=== PATIENT | female | born 1940 | race Caucasian/White ===

== ENCOUNTER → 2017-02-18 | Outpatient (CLI) | payer OTHER ==
[~2017-02-18] MED LIST: AMLO-114 PO; ASPCH81 PO; CRS/10 PO; FURO-85 PO; HYDR-4716 PO; LEVO75TA PO; METO100T7 PO; MULTTAB58 PO; PRLSR20 PO
[2017-02-18 13:10] LABS: THYROID STIMULATING HORMONE 2.99 uIu/ml (0.300-4.500)
[2017-02-18 13:22] LABS: ESTIMATED AVERAGE GLUCOSE 143 mg/dl; HA1C FLAG Normal (Normal)
== END | disposition home or self-care (01) ==
LOC: C.LABBFT 08:06
PROVIDERS: ATTEND Internal Medicine
DX: E11.9 Type 2 diabetes mellitus without complications (principal); E03.9 Hypothyroidism, unspecified

== ENCOUNTER → 2017-02-25 | Outpatient (CLI) | payer OTHER ==
--- NOTE | 2017-02-25 10:35 | DIAGNOSTIC IMAGING REPORT ---
BILATERAL CAROTID DOPPLER STUDY HISTORY: I65.29 Carotid artery stenosis, [id number] F.UP LAST STUDY 1 COMPARISON: Carotid Doppler 08/26/2016. TECHNIQUE: Real-time, grayscale, and color Doppler sonography of the carotid arteries was performed. Imaging reviewed in the transverse and longitudinal planes. All measurements were calculated based on NASCET criteria. FINDINGS: Antegrade flow is seen in the bilateral vertebral arteries. The brachial pressures are hemodynamically similar but elevated measuring up to 200/92. Moderate calcified plaque within the right carotid bifurcation. This is similar to the prior study. The peak systolic velocity within the right ICA is 182 cm/s proximally. The right systolic ratio is 1.8. This has slightly improved from the prior study. The right external carotid artery demonstrates a peak systolic velocity of 306 cm/s. The peak systolic velocity within the left ICA is 114 cm/s. The left systolic ratio is 0.9. IMPRESSION: 1. Approximately 50-69% stenosis seen within the proximal right internal carotid artery. This is slightly improved. 2. No hemodynamically significant stenosis within the left carotid arteries. 3. Hypertension measuring 200/92. Electronically signed by: Arcadio Arzola M.D. 02/25/2017 10:33 AM Dictated Date/Time: 02/25/2017 10:30 AM
== END | disposition home or self-care (01) ==
LOC: C.ULTR 09:30
PROVIDERS: ATTEND Surgery
DX: I65.21 Occlusion and stenosis of right carotid artery (principal)

== ENCOUNTER → 2017-03-20 | Outpatient (CLI) | payer OTHER ==
[2017-03-20 12:16] LABS: HEMATOCRIT 41.4 % (37-47); MEAN CELL VOLUME 90.4 fL (80-100); MEAN CORPUSCULAR HEMOGLOBIN 29.5 pg (25-34); MEAN CORPUSCULAR HGB CONC 32.6 g/dl (32-36); MEAN PLATELET VOLUME 9.8 fL (7.4-10.4); PLATELET COUNT 244 K/uL (130-400); RED BLOOD COUNT 4.58 M/uL (4.2-5.4)
[2017-03-20 12:39] LABS: BLOOD UREA NITROGEN 24 mg/dl (7-18); BUN/CREATININE RATIO 15.8 (10-20); CARBON DIOXIDE 27 mmol/L (21-32); CHLORIDE 105 mmol/L (98-107); GLUCOSE 134 mg/dl (70-99); PHOSPHORUS 3.1 mg/dl (2.5-4.9); POTASSIUM 3.9 mmol/L (3.5-5.1); SODIUM 139 mmol/L (136-145)
[2017-03-20 12:49] LABS: URINE PROTIEN/CREAT RATIO 0.1 (0-0.2); URINE TOTAL PROTEIN 30.1 mg/dl (0-11.9)
[2017-03-20 13:00] LABS: URINE APPEARANCE CLEAR (CLEAR); URINE BILIRUBIN NEG (NEG); URINE COLOR YELLOW; URINE EPITHELIAL CELL AUTO 20-30 /lpf (0-5); URINE NITRITE NEG (NEG); URINE PH 5.5 (4.5-7.5); URINE SPECIFIC GRAVITY 1.019 (1.000-1.030); UROBILINOGEN NEG (NEG)
[2017-03-20 13:09] LABS: MANUAL MICROSCOPIC REQUIRED? NO; REVIEW REQ? NO
== END | disposition home or self-care (01) ==
LOC: C.LABBFT 07:35
PROVIDERS: ATTEND Internal Medicine Nephrology
DX: E55.9 Vitamin D deficiency, unspecified (principal); N25.81 Secondary hyperparathyroidism of renal origin; I12.9 Hypertensive chronic kidney disease with stage 1 through stage 4 chronic kidney disease, or unspecified chronic kidney disease; N18.3 Chronic kidney disease, stage 3 (moderate)

== ENCOUNTER → 2017-09-04 | Outpatient (CLI) | payer OTHER ==
[2017-09-04 12:41] LABS: ALT/SGPT 20 U/L (12-78); AST/SGOT 14 U/L (15-37); BLOOD UREA NITROGEN 27 mg/dl (7-18); BUN/CREATININE RATIO 18.7 (10-20); CALCIUM 9.1 mg/dl (8.5-10.1); CARBON DIOXIDE 23 mmol/L (21-32); CHLORIDE 106 mmol/L (98-107); CHOLESTEROL 197 mg/dl (0-200); CREATININE 1.44 mg/dl (0.60-1.20); GLUCOSE 116 mg/dl (70-99); POTASSIUM 4.2 mmol/L (3.5-5.1); SODIUM 137 mmol/L (136-145)
[2017-09-04 12:43] LABS: ESTIMATED AVERAGE GLUCOSE 143 mg/dl; HA1C FLAG Normal (Normal)
[2017-09-04 12:53] LABS: ALB/GLOB RATIO 0.8 (0.9-2); ALKALINE PHOSPHATASE 105 U/L (45-117); CHOLESTEROL/HDL RATIO 4.4; HDL CHOLESTEROL 45 mg/dl; LDL CHOLESTEROL CALCULATED 110 mg/dl; TRIGLYCERIDES 209 mg/dl (0-150); VERY LOW DENSITY LIPOPROT CALC 42 mg/dl
[2017-09-04 12:55] LABS: HEMATOCRIT 41.6 % (37-47); MEAN CELL VOLUME 88.7 fL (80-100); MEAN CORPUSCULAR HEMOGLOBIN 29.4 pg (25-34); MEAN CORPUSCULAR HGB CONC 33.2 g/dl (32-36); MEAN PLATELET VOLUME 9.9 fL (7.4-10.4); PLATELET COUNT 218 K/uL (130-400); RED BLOOD COUNT 4.69 M/uL (4.2-5.4); WHITE BLOOD COUNT 7.07 K/uL (4.8-10.8)
[2017-09-04 13:02] LABS: URINE PROTIEN/CREAT RATIO 0.2 (0-0.2); URINE TOTAL PROTEIN 29.6 mg/dl (0-11.9)
[2017-09-04 13:04] LABS: URINE APPEARANCE CLEAR (CLEAR); URINE BILIRUBIN NEG (NEG); URINE COLOR YELLOW; URINE NITRITE NEG (NEG); URINE SPECIFIC GRAVITY 1.023 (1.000-1.030); UROBILINOGEN NEG (NEG)
[2017-09-04 13:09] LABS: MANUAL MICROSCOPIC REQUIRED? NO; REVIEW REQ? NO
== END | disposition home or self-care (01) ==
LOC: C.LABBFT 08:01
PROVIDERS: ATTEND Internal Medicine Nephrology
DX: I12.9 Hypertensive chronic kidney disease with stage 1 through stage 4 chronic kidney disease, or unspecified chronic kidney disease (principal); E55.9 Vitamin D deficiency, unspecified; N18.3 Chronic kidney disease, stage 3 (moderate); N25.81 Secondary hyperparathyroidism of renal origin; E11.22 Type 2 diabetes mellitus with diabetic chronic kidney disease; E03.9 Hypothyroidism, unspecified; E78.5 Hyperlipidemia, unspecified

== ENCOUNTER → 2017-10-14 | Outpatient (CLI) | payer OTHER ==
[2017-10-14 12:35] LABS: THYROID STIMULATING HORMONE 2.09 uIu/ml (0.300-4.500)
== END | disposition home or self-care (01) ==
LOC: C.LABBFT 07:41
PROVIDERS: ATTEND Internal Medicine
DX: E03.9 Hypothyroidism, unspecified (principal)

== ENCOUNTER → 2018-02-27 | Outpatient (CLI) | payer OTHER ==
--- NOTE | 2018-02-27 11:18 | DIAGNOSTIC IMAGING REPORT ---
CAROTID DOPPLER NECK ART CLINICAL HISTORY: 77 years-old Female presenting with I65.29 Carotid artery stenosis, asymptomatic yearly, last on 02/26. TECHNIQUE: Real-time grayscale and color and spectral Doppler ultrasound imaging of the bilateral carotid arteries was performed. NASCET criteria was used in evaluating this study. COMPARISON: 02/25/2017. FINDINGS: Right: Common carotid: Atherosclerosis at the carotid bulb. Peak systolic velocity 81 cm/s. Internal carotid artery: Atherosclerosis of the proximal ICA. Peak systolic velocity 188 cm/s. Systolic ratio: 2.3. External carotid artery: Atherosclerosis. Peak systolic velocity 305 cm/s. Left: Common carotid: Atherosclerosis at the carotid bulb. Peak systolic velocity 118 cm/s. Internal carotid artery: Atherosclerosis of the proximal ICA. Peak systolic velocity 130 cm/s. Systolic ratio: 1.1. External carotid artery: Atherosclerosis. Peak systolic velocity 106 cm/s. Bilateral antegrade flow within the vertebral arteries. Reference ranges: Stenosis measurements are compared to reference velocity parameters. Primary parameters: ICA peak systolic velocity (PSV) < 125 cm/s normal or indicating < 50% stenosis; ICA PSV 125-230 cm/s equivalent to 50-69% stenosis; ICA PSV > 230 cm/s equivalent to greater than or equal to 70% stenosis. Additional parameters: ICA PSV to common carotid artery PSV ratio < 2 normal or < 50% stenosis; 2-4 equates to 50-69% stenosis, > 4 equates to greater than or equal to 70% stenosis. Normal ICA end-diastolic velocity less than 40. Blood pressure: Brachial: Right: 217/67 mmHg, Left: 207/68 mmHg. IMPRESSION: 1. Findings consistent with 50-69% stenosis of the proximal right internal carotid artery, unchanged. 2. No hemodynamically significant left carotid artery stenosis. 3. Systemic hypertension. The report will be called/faxed according to standard departmental protocol. Electronically signed by: Gavino Muñoz M.D. 02/27/2018 11:16 AM Dictated Date/Time: 02/27/2018 11:14 AM
== END | disposition home or self-care (01) ==
LOC: C.ULTR 09:27
PROVIDERS: ATTEND Surgery
DX: I65.21 Occlusion and stenosis of right carotid artery (principal); I10 Essential (primary) hypertension

== ENCOUNTER → 2018-03-05 | Outpatient (CLI) | payer OTHER ==
[2018-03-05 12:56] LABS: HEMATOCRIT 40.9 % (37-47); HEMOGLOBIN 13.5 g/dL (12.0-16.0); MEAN CELL VOLUME 89.5 fL (80-100); MEAN CORPUSCULAR HEMOGLOBIN 29.5 pg (25-34); MEAN PLATELET VOLUME 9.5 fL (7.4-10.4); PLATELET COUNT 220 K/uL (130-400); RED CELL DISTRIBUTION WIDTH CV 14.3 % (11.5-14.5); RED CELL DISTRIBUTION WIDTH SD 46.8 fL (36.4-46.3); WHITE BLOOD COUNT 7.01 K/uL (4.8-10.8)
[2018-03-05 13:59] LABS: ALBUMIN 3.4 gm/dl (3.4-5.0); ALKALINE PHOSPHATASE 112 U/L (45-117); ALT/SGPT 23 U/L (12-78); AST/SGOT 16 U/L (15-37); BLOOD UREA NITROGEN 23 mg/dl (7-18); CALCIUM 9.6 mg/dl (8.5-10.1); CARBON DIOXIDE 22 mmol/L (21-32); CHOLESTEROL 173 mg/dl (0-200); CREATININE 1.54 mg/dl (0.60-1.20); GLUCOSE 127 mg/dl (70-99); POTASSIUM 4.3 mmol/L (3.5-5.1); SODIUM 139 mmol/L (136-145); TOTAL PROTEIN 7.7 gm/dl (6.4-8.2)
[2018-03-05 14:13] LABS: LDL CHOLESTEROL CALCULATED 89 mg/dl
== END | disposition home or self-care (01) ==
LOC: C.LABBFT 07:13
PROVIDERS: ATTEND Internal Medicine
DX: I12.9 Hypertensive chronic kidney disease with stage 1 through stage 4 chronic kidney disease, or unspecified chronic kidney disease (principal); E78.5 Hyperlipidemia, unspecified; N18.3 Chronic kidney disease, stage 3 (moderate); E11.22 Type 2 diabetes mellitus with diabetic chronic kidney disease; E03.9 Hypothyroidism, unspecified

== ENCOUNTER 2019-04-27 04:57 | Inpatient (IN) ==
--- NOTE | 2019-04-07 13:42 | Anesthesiology Consultation ---
Date of Service April 07, 2019 Assessment & Plan (1) Encounter for pre-operative examination: Chart Review Chart Review: Acceptable Risk for Surgery and Patient seen in Pre Admission Testing Consults Requested cardiac ([facility] (04/07)) Patient was seen by cardiology office on 04/07/19. Per note from this visit, "patient is an acceptable risk to proceed with upcoming surgery without any additional cardiovascular testing or intervention. Recommend close monitoring and avoidance of hypotension, hypertension, tachycardia, hypoxia, and significant anemia throughout the perioperative period to reduce myocardial oxygen demand and meet myocardial oxygen delivery." Teaching & Discussion Pre-Anesthesia Teaching/Discussion Notes: Instructed NPO after midnight before surgery, except medications with 15 cc of water. Medication instructions provided according to the PAT guidelines. History Surgery Operation Date: 04/27/19 07:30 Proposed Procedures p Right Carotid Endarterectomy with Angioplasty - Chepe Ascencio MD Height/Weight Height: 5 ft 6 in Weight: 94.1 kg Allergies Allergy/AdvReac Type Severity Reaction Status Date / Time No Known Allergies Allergy Unknown NONE Verified 04/01/19 16:08 Medications Home Medications Medication Instructions Recorded Confirmed Last Taken amlodipine 10 mg PO QAM 04/01/19 04/01/19 Unknown aspirin 81 mg PO QAM 04/01/19 04/01/19 Unknown atorvastatin 40 mg PO PM 04/01/19 04/01/19 Unknown ergocalciferol (vitamin D2) 50,000 unit PO MONTHLY 04/01/19 04/01/19 Unknown [Vitamin D2] furosemide 20 mg PO QAM 04/01/19 04/01/19 Unknown levothyroxine 125 mcg PO QAM 04/01/19 04/01/19 Unknown lovastatin 100 mg PO QAM 04/01/19 04/01/19 Unknown metoprolol tartrate 75 mg PO BID 04/01/19 04/01/19 Unknown urymwxninhma-[id number]-[id number] 1 tab PO QAM 04/01/19 04/01/19 Unknown [Multivitamin 50 Plus] omeprazole 20 mg PO QAM 04/01/19 04/01/19 Unknown psyllium husk [Metamucil] 0.52 g PO QAM 04/01/19 04/01/19 Unknown Past Medical History Medical History Carotid artery disease Chronic kidney disease FOLLOWS W/ DR. COLON GERD (gastroesophageal reflux disease) HTN (hypertension) History of colonic polyps History of stroke 2008 - [facility] - NO RESIDUAL EFFECTS Hyperlipidemia Hypothyroidism Osteoarthritis Exercise / Class Metabolic Activity II 4-5 Yardwork/Stairs/Walk up hill (Goes to gym several times per week and does stationary bike and strength training. Able to climb FOS. Denies CP or SOB. ) Past Surgical History Surgical History History of colonoscopy History of left-sided carotid endarterectomy 01/29/12 - ETT #7.0 History of tooth extraction History of total abdominal hysterectomy and bilateral salpingo-oophorectomy Past Anesthesia History No Hx of Anesthesia Complications and No Family Hx of Anesthesia Complications History of PONV No Hx of PONV and No Hx of Motion Sickness Social History Smoking Status: Never smoker Do You Dip or Chew Tobacco: No Hx Alcohol Use: No Hx Substance Use: No substance use type: does not use Review of Systems Patient denies chest pain, shortness of breath, dyspnea on exertion, cough, wheezing, palpitations. +Joint Pain (Knees) +Acid Reflux (controlled with medications) Physical Exam Vital Signs BP: 146/77 P: 60 R: 16 T: 97.7 SPO2: 98% on RA Constitutional + obese ENMT Mouth: + dentures (Full upper denture, Lower partial plate), + dental restorations and + poor dentition Thyromental Distance: < 3.5 Finger Breadths (2.5) Mallampati Class: II +2 tonsillary hypertrophy Neck normal visual inspection and trachea midline; neck extension not limited Respiratory normal respiratory effort Auscultation: lungs clear to auscultation bilaterally Cardiovascular Rate/Rhythm: regular rate and regular rhythm Heart Sounds: no murmur Vessels: + carotid bruit (Bilateral) Neurologic moves all extremities Psychiatric Orientation: alert and oriented x 3 Testing Laboratory Results 04/07/19 14:05 Blood Type O Negative Antibody Screen NEGATIVE Laboratory Tests 03/18/19 03/18/19 03/18/19 08:07 08:07 08:08 WBC 7.04 Hgb 12.8 Hct 36.7 L Plt Count 231 Sodium 138 Potassium 4.0 Chloride 107 Carbon Dioxide 23 BUN 27 H Creatinine 1.56 H Glucose 139 H Hemoglobin A1c 7.1 H Electrocardiogram Date: 04/07/19 Sinus rhythm with PVCs at 84bpm Chest X-Ray Date: 04/07/19 Findings: + NAD and + R hemidiaphragm elevation FINDINGS: PA and lateral chest radiographs are compared to study dated 03/08/2009. The cardiomediastinal silhouette is unremarkable noting atherosclerotic calcification of the thoracic aorta. There is mild chronic elevation of right hemidiaphragm and bibasilar atelectasis. The lungs and pleural spaces are otherwise clear. There is no pneumothorax. The skeletal structures are osteopenic. The bony thorax appears intact. IMPRESSION: No active disease in the chest. Other Testing Carotid Duplex 03/01/19 1. >70% stenosis in the right ICA 2. <30% re-stenosis in the left ICA, post endarterectomy 3. >50% stenosis in the right ECA 4. Antegrade flow in both vertebral arteries 5. Compared with prior exam report from 02/2018 done at [facility], there is progression of stenosis in the right ICA now >70%.
--- NOTE | 2019-04-07 13:48 | PAT Medication Instructions ---
Medication Instructions Date of Service April 07, 2019 Home Medications amlodipine 10 mg PO QAM aspirin 81 mg PO QAM atorvastatin 40 mg PO PM ergocalciferol (vitamin D2) [Vitamin D2] 50,000 unit PO MONTHLY furosemide 20 mg PO QAM levothyroxine 125 mcg PO QAM lovastatin 100 mg PO QAM metoprolol tartrate 75 mg PO BID [id number] [Multivitamin 50 Plus] 1 tab PO QAM omeprazole 20 mg PO QAM psyllium husk [Metamucil] 0.52 g PO QAM Continue as directed ergocalciferol (vitamin D2) [Vitamin D2] 50,000 unit PO MONTHLY ASK your prescriber and surgeon aspirin 81 mg PO QAM DO NOT take the morning of surgery furosemide 20 mg PO QAM [id number]-[id number] [Multivitamin 50 Plus] 1 tab PO QAM psyllium husk [Metamucil] 0.52 g PO QAM Take morning of surgery With a small sip of water, OTHERWISE NOTHING TO EAT OR DRINK AFTER MIDNIGHT: amlodipine 10 mg PO QAM levothyroxine 125 mcg PO QAM lovastatin 100 mg PO QAM metoprolol tartrate 75 mg PO BID omeprazole 20 mg PO QAM Take evening before surgery atorvastatin 40 mg PO PM metoprolol tartrate 75 mg PO BID Other Notes If you have any questions please call us at [phone] or [phone] or [phone] or [phone]
--- NOTE | 2019-04-07 14:27 | XRay Report ---
TWO VIEW CHEST CLINICAL HISTORY: Preoperative examination. FINDINGS: PA and lateral chest radiographs are compared to study dated 03/08/2009. The cardiomediastin al silhouette is unremarkable noting atherosclerotic calcification of the thoracic aorta. There is m ild chronic elevation of right hemidiaphragm and bibasilar atelectasis. The lungs and pleural spaces are otherwise clear. There is no pneumothorax. The skeletal structures are osteopenic. The bony thora x appears intact. IMPRESSION: No active disease in the chest. Electronically signed by: Yasmani Pederson M.D. 04/07/2019 2:26 PM
[2019-04-27] MEDS ORDERED: LR 15ML/HR IV SCH (06:00)
--- NOTE | 2019-04-27 06:23 | History & Physical Bridge Note ---
Date of Service April 27, 2019 History & Physical Bridge Note I have examined the patient, reviewed the History & Physical and in the interval since the performance of the History & Physical I have noted the following changes of clinical significance: no changes noted SO at bedside all questions answered pt marked
[2019-04-27] MEDS ORDERED: fentaNYL citrate 100 MCG/2 ML VIAL ONE (06:31)
[2019-04-27] MEDS ORDERED: LIDOCAINE/EPINEPHRINE 1% 20 ML VIAL ONE (06:41)
[2019-04-27] MEDS ORDERED: HEPARIN (PORCINE) 1000 UNIT/ML 10 ML (CATH LAB USE ONLY) ONE (06:41)
[2019-04-27] MEDS ORDERED: BACITRACIN INJ 50,000 UNIT VIAL ONE (06:42)
[2019-04-27] MEDS ORDERED: ONDANSETRON INJ 2 MG/ML 2 ML VIAL IV PRN ×2 (07:45→10:16)
[2019-04-27] MEDS ORDERED: HYDROmorphone INJ 1 MG/ML SYRINGE IV PRN (07:45)
[2019-04-27] MEDS ORDERED: ePHEDrine sulfate 50 MG/ML AMP IV PRN (07:45)
[2019-04-27] MEDS ORDERED: ATROPINE SULFATE 0.1 MG/ML 10ML SYR IV PRN (07:45)
[2019-04-27] MEDS ORDERED: fentaNYL citrate 100 MCG/2 ML VIAL IV PRN (07:45)
[2019-04-27] MEDS ORDERED: CEFAZOLIN 2000MG 2,000 MG/15 ML SYR IV ONE (07:50)
--- NOTE | 2019-04-27 08:55 | Post Operative Brief Note ---
Immediate Post Op Note v1 Date of Surgery April 27, 2019 Pre & Post Diagnosis Operation Date: 04/27/19 07:00 Pre-Op Diagnosis: Right Carotid Stenosis Post-Op Diagnosis: Right Carotid Stenosis Procedure Operation Date: 04/27/19 07:00 Actual Procedures p Right Carotid Endarterectomy with Angioplasty(Right) - Chepe friend MD Surgeon Chepe Ascencio MD Helmet Hat Sweatband Puncher b lizbeth mccollum Estimated Blood Loss 100 Findings Consistent with Post-Op Diagnosis Drains Benito Drain
[2019-04-27] MEDS ORDERED: ONDANSETRON INJ 2 MG/ML 2 ML VIAL ONE (08:57)
[2019-04-27] MEDS ORDERED: DEXAMETHASONE SOD INJ 4 MG/ML VIAL ONE (08:57)
[2019-04-27] MEDS ORDERED: GLYCOPYRROLATE 0.2 MG/ML VIAL ONE (08:57)
[2019-04-27] MEDS ORDERED: LIDOCAINE HCL 2% 2 ML VIAL/AMP(20MG/ML) INFIL ONE (08:57)
[2019-04-27] MEDS ORDERED: NITROGLYCERIN/D5W 100 MCG/ML BTL ONE (08:57)
[2019-04-27] MEDS ORDERED: HEPARIN SOD (PORCINE) 1000 UNIT/ML 10 ML VIAL ONE (08:57)
[2019-04-27] MEDS ORDERED: SURGICEL ABSORB HEMOSTAT 2IN X 14IN TOP ONE (08:57)
[2019-04-27] MEDS ORDERED: NEOSTIGMINE METHYLSULFATE 5 MG/5 ML SYR ONE (08:57)
[2019-04-27] MEDS ORDERED: PHENYLEPHRINE HCL 10 MG/ML VIAL ONE (08:57)
[2019-04-27] MEDS ORDERED: PROTAMINE SULFATE 10 MG/ML 5 ML VIAL ONE (08:57)
[2019-04-27] MEDS ORDERED: PROPOFOL IV EMULSION 10 MG/ML 20 ML VIAL IV ONE (08:57)
[2019-04-27] MEDS ORDERED: LABETALOL HCL IV 5 MG/ML 20ML IV ONE (08:57)
[2019-04-27] MEDS ORDERED: ROCURONIUM BROMIDE 10 MG/ML 5 ML VIAL ONE (08:57)
[2019-04-27] MEDS ORDERED: ePHEDrine sulfate 50 MG/ML SYR ONE (08:57)
--- NOTE | 2019-04-27 09:05 | Procedure Note ---
Procedure Note Date of Service April 27, 2019 After induction, attempted radial arterial line placement in left wrist x 2 without success. Successful placement of radial arterial line in right wrist on first attempt in preparation for CEA with Dr. Ascencio. Both wrists prepped with chlorhexidine and draped with sterile towels. 20 G angiocath placed under sterile technique utilizing sterile gloves, surgical hats and masks. Catheter threaded using seldinger technique with return of pulsatile, bright red blood. Site covered with occlusive dressing and taped in place. Waveform consistent with correct arterial placement. After placement, fingers of procedural hand had normal perfusion. Patient tolerated procedure well without complications. Coding
--- NOTE | 2019-04-27 09:32 | Operative Report ---
Post Operative Report Pre & Post Diagnosis Operation Date: 04/27/19 07:00 Pre-Op Diagnosis: Right Carotid Stenosis Post-Op Diagnosis: Right Carotid Stenosis Procedure Operation Date: 04/27/19 07:00 Actual Procedures p Right Carotid Endarterectomy with Angioplasty(Right) - Chepe Ascencio MD The patient was brought into the operating theater general endotracheal ane sthesia roll is been placed underneath her shoulders neck and face and upper chest prepped Betadine scrub and solution properly draped systemic antibiotics given a timeout was had patient identified 1% Xylocaine with epi was used to infiltrate anterior of the sternocleido muscle approximately 3-1/2 inches long incision was made deepened to subcutaneous tissue patient had a prominent external jugular vein was divided and doubly ligated dissection was carried down retracted the sternocleido laterally into the neurovascular bundle dissected out the common carotid vessel loop was placed loosely and her dissection was taken out more cephalad we identified a lymph node in the way and the internal jugular area was removed we identified the external carotid there was no obvious superior thyroid appreciated the external carotid was then elevated with vessel loop the internal carotid was origin was dissected out and identified the hypoglossal nerve and elevated out away with a vessel loop the internal carotid was dissected most of the disease right side right at the takeoff where we can palpate the we well beyond the plaque. Suspensory ligament was then divided ligated with 2-0 silk we had enough mobilization of the common carotid the external and internal this point 10,000 units of heparin was given with approximately 5 minutes in the meantime the piece of bovine patch was cut appropriately for the angioplasty we clamped the internal carotid with a bulldog clamp then the common external arteriotomy in the common carotid was made entered Lion scissors was taken to contract nearly difficult stenotic hard plaque onto the internal carotid area we then we started the circular fibers dissection in the common carotid and an inversion endarterectomy of the external and continued up to the internal where the plaque came off nicely into the intima distal to that was quite adherent I released the bulldog clamp patient had almost pulsatile backbleeding flush the external and the common suctioned out the endarterectomy site it was fairly good and no debris appreciated the patch was brought up onto the field and parachuted down on the internal carotid area with 6-0 Prolene suture stay suture was placed at approximately 7 o'clock position taken piece of the patch and the artery patch were very too tight circumferentially went around with 6-0 Prolene prior to completely closing the wound we had checked and irrigated the area satisfactory there is no evidence of any debris I then used a #4 bakes dilator to go up to the internal carotid area where he went up excellent backbleeding back pain was controlled DeBakey forcep flushed in the common and external suctioned out the endarterectomy site and tied down the patch few bleeders along the suture line was controlled with 6-0 i nterrupted Prolene suture flow was reestablished first by taken over taken off the external carotid backbleeding 25-gauge needle was used to puncture the patch for waiting a trap there states was satisfactory we did reversed with 40 g of protamine. Once is been controlled there was one small bleeder again along the suture line about this and that we closed with interrupted 6-0 Prolene suture I elected to drain the operative site with quarter inch Benito drain that was brought in between the 2 heads of sternocleido placed along the carotid attached skin edge with 2-0 silk suture wound was closed with 302 0 Vicryl interrupted sutures sandra for skin edges dressing was applied procedure was tolerated well by the patient estimated blood loss 100 cc patient awoke in the operating room and neurologically intact addendum B Jill GALINDO present the whole time and help with exposure retraction and wound closure Surgeon Chepe Ascencio MD Mobile Home [employer] Manager lubna galindo Estimated Blood Loss 100 Findings Consistent with Post-Op Diagnosis Specimens plaque Description of Procedure merda I attest to the content of the Intraoperative Record and any orders documented therein. Any exceptions are noted below.
[2019-04-27] MEDS ORDERED: MoRPHine SULFATE 4 MG/ML 1 ML CARP\\VIAL IV PRN (10:16)
--- NOTE | 2019-04-27 10:16 | Anesthesiology Progress Note ---
Date of Service April 27, 2019 Anesthesia Post Procedure Vital Signs Vital Signs: Temp Pulse Pulse Resp BP BP BP 04/27/19 10:05 36.8 C 53 L 19 118/54 L 111/56 L 04/27/19 09:55 53 L 21 122/58 L 108/54 L 04/27/19 09:45 54 L 18 115/48 L 110/55 L 04/27/19 09:35 59 L 15 115/51 L 112/55 L 04/27/19 09:25 59 L 17 133/56 L 110/54 L 04/27/19 09:18 36.4 C L 58 L 16 152/68 H 04/27/19 05:37 36.7 C 68 18 171/64 H Pulse Ox 04/27/19 10:05 94 04/27/19 09:55 94 04/27/19 09:45 93 04/27/19 09:35 97 04/27/19 09:25 94 04/27/19 09:18 91 04/27/19 05:37 98 Transfer of Care Handoff Completed per policy Notes Mental Status: alert / awake / arousable and participated in evaluation Patient Amnestic to Procedure: Yes Nausea / Vomiting: adequately controlled Pain: adequately controlled Airway Patency, RR, SpO2: stable & adequate BP & HR: stable & adequate Hydration State: stable & adequate Anesthetic Complications: no major complications apparent and Pt Satisfied with anesthetic care
--- NOTE | 2019-04-27 10:29 | Critical Care Consultation ---
Date of Consultation April 27, 2019 Assessment & Plan (1) Status post carotid endarterectomy: Reason Critically Ill: Ms. Cummins is a pleasant 78 year old female with a past medical history of CVA in 2008, bilateral carotid artery stenosis s/p left sided CEA in 2011, hypertension, hyperlipidemia, diabetes mellitus, CKD stage 3, hypothyroidism, PAD and GERD who underwent a right sided carotid endarterectomy with angioplasty on 04/27/[address] Ascencio. The ICU team was consulted to assist in post-operative monitoring. Neuro: -s/p right sided carotid endarterectomy with angioplasty -> close monitoring of BP x24 hours, aim for systolic BP between 120-160 mmHg -> nitroglycerin drip ordered prn to reduce BP if necessary -prior CVA -> no residual deficits -> continue home aspirin Cardiac: -no history of prior AR or hx of CHF -Hypertension -> continue with home amlodipine, losartan and metoprolol -> takes furosemide prn at home -> BP monitoring as above -Hypercholesterolemia -> continue home atorvastatin Respiratory: -no signs or symptoms of respiratory illness -patient placed on 4L of oxygen via nasal cannula post-procedure, wean as tolerated GI: -currently on clear liquid diet, advance as tolerated -GERD -> continue home PPI RENAL/LYTES: -CKD stage 3 -> follows with Dr. Flores -> b/l creatinine is 1.5 -> BMP ordered for tomorrow AM -currently receiving LR at 75 mls/hr : -no jara placed ENDO: -Hx of DM -> not on any medications at home -> HbA1c in March 2019 - 7.1% -> ICU hyperglycemic protocol ordered -Hx of Hypothyroidism -> continue home synthroid -> TSH in March 2019 was 1.5 -Vitamin D deficiency and secondary hyperparathyroidism -> takes Vitamin D on a monthly basis HEME: -CBC ordered for tomorrow ID: -MRSA swab negative -no signs or symptoms of infection noted LINES/IV ACCESS: peripheral IV CODE STATUS: FULL, as per discussion with patient DVT PROPHYLAXIS: SCDs (2) Carotid stenosis: (3) Hypertension: (4) GERD (gastroesophageal reflux disease): (5) Hyperlipidemia: (6) Hypothyroidism: (7) Hypertension: Supervising Physician Co-Signing Physician Notes Dr. Rosales was resident physician during care of patient. I separately evaluated patient for agrawal portions of the history and the exam. I was present during the critical portion of medical decision making, and I discussed the case with the resident. I generally agree with the findings and plan. Blood pressure monitoring blood precautions. History of Present Illness Reason for Consultation: Monitoring post right sided carotid endarterectomy Requesting Physician: Dr. Ascencio Attending Physician: Dr. Lobo History of Present Illness Ms. Cummins is a pleasant 78 year old female with a past medical history of CVA in 2008, bilateral carotid artery stenosis s/p left sided CEA in 2011, hypertension, hyperlipidemia, diabetes mellitus, CKD stage 3, hypothyroidism, PAD and GERD who underwent a right sided carotid endarterectomy with angioplasty on 04/27/[address] Ascencio for a >70% stenosis of the right carotid artery seen on U/S in 02/2019. The ICU team was consulted to assist in post- operative monitoring. Ms. Cummins was seen following her procedure. She reports feeling tired and sleepy due to the anesthesia. She notes 4/10 right sided neck discomfort, but otherwise has no complaints. She states she did not have any complications with her last endarterectomy on the left side in 2011. She states that her prior stroke did not leave her with any deficits. She denies a history of AR or CHF. Allergies Allergy/AdvReac Type Severity Reaction Status Date / Time No Known Allergies Allergy Unknown NONE Verified 04/27/19 05:31 Home Medications Home Medications Medication Instructions Recorded Confirmed Type amlodipine 10 mg PO QAM 04/01/19 04/27/19 History aspirin 81 mg PO QAM 04/01/19 04/27/19 History atorvastatin 40 mg PO PM 04/01/19 04/27/19 History ergocalciferol (vitamin D2) 50,000 unit PO MONTHLY 04/01/19 04/27/19 History [Vitamin D2] furosemide 20 mg PO QAM 04/01/19 04/27/19 History metoprolol tartrate 75 mg PO BID 04/01/19 04/27/19 History [id number]-[id number]-[id number] 1 tab PO QAM 04/01/19 04/27/19 History [Multivitamin 50 Plus] omeprazole 20 mg PO QAM 04/01/19 04/27/19 History psyllium husk [Metamucil] 0.52 g PO QAM 04/01/19 04/01/19 History levothyroxine 125 mcg tablet 125 mcg PO DAILY #90 tab 04/19/19 04/27/19 Rx losartan 100 mg PO DAILY 04/27/19 04/27/19 History Patient History Social History Preferred Language: [place] Communication Ability: Effective Wastewater Manager Required: No Beliefs That Will Affect Care: None Current Living Situation: Spouse Other Information That Helps Us Care for You: No Feels Safe at Home: Yes Safety Concerns: Feels Safe At This Time Smoking Status: Never smoker Do You Dip or Chew Tobacco: No Second Hand Exposure: No Hx Alcohol Use: No Hx Substance Use: No Review of Systems Constitutional: + fatigue; no fever and no chills Respiratory: no cough and no dyspnea Cardiovascular: no chest pain and no dyspnea Gastrointestinal: no abdominal pain, no nausea and no vomiting Neurologic: no tingling, no numbness and no headache(s) Physical Exam Constitutional: WD/WN, vitals as above + obese, cooperative and comfortable Eyes: PERRL, conjunctivae normal, anicteric sclerae ENMT: external ear and nose normal, oropharynx normal Neck: dressing in place over right side of neck w/small amount of bloody drainage noted Respiratory: normal respiratory effort, lungs clear to auscultation Cardiovascular: RRR, no murmur, no edema Gastrointestinal (Abdomen): Inspection/Auscultation: abdomen normal to inspection Percussion/Palpation: abdomen soft; abdomen nontender, no guarding and abdomen not rigid Skin: no rashes, warm and dry Neurologic: moves all extremities; no focal motor deficits 5/5 strength of upper and lower extremities bilaterally Psychiatric: A+Ox3, euthymic affect Results & Data Vital Signs (Past 12 Hours) Vital Signs Temp Pulse Pulse Resp BP BP BP 04/27/19 10:05 36.8 C 53 L 19 118/54 L 111/56 L 04/27/19 09:55 53 L 21 122/58 L 108/54 L 04/27/19 09:45 54 L 18 115/48 L 110/55 L 04/27/19 09:35 59 L 15 115/51 L 112/55 L 04/27/19 09:25 59 L 17 133/56 L 110/54 L 04/27/19 09:18 36.4 C L 58 L 16 152/68 H 04/27/19 05:37 36.7 C 68 18 171/64 H Pulse Ox 04/27/19 10:05 94 04/27/19 09:55 94 04/27/19 09:45 93 04/27/19 09:35 97 04/27/19 09:25 94 04/27/19 09:18 91 04/27/19 05:37 98 PG Care Time/CCT Critical Care Time: No Resident Activity Tracking Resident Involvement: Resident Care Provided Care Provided: Adult Hospital Medicine
[2019-04-27] MEDS ORDERED: NITROGLYCERIN/D5W 100MCG/ML 250 ML IV SCH (11:00)
[2019-04-27] MEDS: HYDROCODONE/ACETAMOPHEN 5/325MG TAB PO PRN ×3 (11:02→21:00)
[2019-04-27] MEDS: LACTATED RINGER'S 1,000 ML IV SCH ×2 (11:03→22:21)
[2019-04-27] MEDS ORDERED: ICU PROTOCOL FOR HYPERGLYCEMIA PRN (12:25)
[2019-04-27] MEDS ORDERED: NURSING DECISION MEDICATION ONE (17:01)
[2019-04-27] MEDS ORDERED: INSULIN GLARGINE SOLOSTAR 100 UNITS/ML 3 ML PEN SC STA (17:14)
[2019-04-27] MEDS ORDERED: PHARMACY GLYCEMIC MGMT CONSULT PRN (17:16)
[2019-04-27] MEDS: INSULIN ASPART 100 UNITS/ML 3 ML PEN SC SCH ×2 (17:52→20:49)
[2019-04-27] MEDS ORDERED: FUROSEMIDE 20 MG TAB PO PRN (18:09)
[2019-04-27] MEDS: METOPROLOL TARTRATE 50 MG TAB PO SCH (20:55)
[2019-04-27] MEDS ORDERED: ATORVASTATIN 40 MG TAB PO SCH (21:00)
[2019-04-28] MEDS: HYDROCODONE/ACETAMOPHEN 5/325MG TAB PO PRN ×2 (01:23→05:33)
[2019-04-28] MEDS ORDERED: INSULIN ASPART 100 UNITS/ML 3 ML PEN SC ONE (02:00)
[2019-04-28 04:32] LABS: Basophils # (auto) 0.01 K/uL (0-0.2); Basophils % (auto) 0.1 %; Hematocrit (blood only) 34.5 % (37-47); Hemoglobin 11.9 g/dL (12.0-16.0); Immature Granulocytes # (auto) 0.08 K/uL (0.00-0.02); Immature Granulocytes % (auto) 0.5 %; Lymphocytes # (auto) 1.44 K/uL (1.2-3.4); Lymphocytes % (auto) 9.3 %; Mean Corpuscular Hgb Conc 34.5 g/dL (32-36); Mean Corpuscular Volume 85.8 fL (80-100); Mean Platelet Volume 9.3 fL (7.4-10.4); Monocytes # (auto) 0.71 K/uL (0.11-0.59); Monocytes % (auto) 4.6 %; Neutrophils # (auto) 13.21 K/uL (1.4-6.5); Neutrophils % (auto) 85.5 %; Platelet Count 191 K/uL (130-400); RDW Coefficient of Variation 13.4 % (11.5-14.5); RDW Standard Deviation 42.3 fL (36.4-46.3); Red Blood Count 4.02 M/uL (4.2-5.4); White Blood Count 15.45 K/uL (4.8-10.8)
[2019-04-28 04:49] LABS: BUN Creatinine Ratio 14.7 (10-20); Creatinine Clr Calc Pharmacy 35.6 ml/min; Est GFR (African American) 38.3; Potassium 4.6 mmol/L (3.5-5.1)
--- NOTE | 2019-04-28 06:28 | Critical Care Progress Note ---
Date of Service April 28, 2019 Assessment & Plan (1) Status post carotid endarterectomy: Reason Critically Ill: Ms. Cummins is a pleasant 78 year old female with a past medical history of CVA in 2008, bilateral carotid artery stenosis s/p left sided CEA in 2011, hypertension, hyperlipidemia, diabetes mellitus, CKD stage 3, hypothyroidism, PAD and GERD who underwent a right sided carotid endarterectomy with angioplasty on 04/27/[address] Ascencio. The ICU team was consulted to assist in post-operative monitoring. Neuro: -s/p right sided carotid endarterectomy with angioplasty on 04/27 -> close monitoring of BP x24 hours, aim for systolic BP between 120-160 mmHg -> BP has been low-normal -> nitroglycerin drip ordered prn to reduce BP if necessary -> pt has not required this -> q4h neurochecks have been normal -prior CVA -> no residual deficits -> continue home aspirin Cardiac: -no history of prior TN or hx of CHF -Hypertension -> continue with home amlodipine, losartan and metoprolol -> takes furosemide prn at home -> BP monitoring as above -Hypercholesterolemia -> continue home atorvastatin Respiratory: -no signs or symptoms of respiratory illness, saturating well on room air GI: -tolerating regular diet -GERD -> continue home PPI RENAL/LYTES: -CKD stage 3 -> follows with Dr. Flores -> b/l creatinine is 1.5 -> creatinine today was 1.5, no electrolyte abnormalities noted -currently receiving LR at 75 mls/hr : -no jara placed ENDO: -Hx of DM -> not on any medications at home -> HbA1c in March 2019 - 7.1% -> ICU hyperglycemic protocol ordered -Hx of Hypothyroidism -> continue home synthroid -> TSH in March 2019 was 1.5 -Vitamin D deficiency and secondary hyperparathyroidism -> takes Vitamin D on a monthly basis HEME: -No hematological abnormalities noted ID: -MRSA swab negative -no signs or symptoms of infection noted LINES/IV ACCESS: peripheral IVs x 2 CODE STATUS: FULL, as per discussion with patient DVT PROPHYLAXIS: SCDs, patient is ambulatory Ms. Cummins will likely be discharged later today. Thank you for allowing us to participate in the care of this patient. Please refer to my attending physician's documentation for any further recommendations. (2) Carotid stenosis: (3) Hypertension: (4) GERD (gastroesophageal reflux disease): (5) Hyperlipidemia: (6) Hypothyroidism: Supervising Physician Co-Signing Physician Notes Dr. Rosales was resident physician during care of patient. I separately evaluated patient for agrawal portions of the history and the exam. I was present during the critical portion of medical decision making, and I discussed the case with the resident. I generally agree with the findings and plan. Critical care needs have resolved likely discharge home later today per surgery Subjective Ms. Cummins reports she feels well today. She was up and walking around the unit yesterday with a walker and stated she did well with this. She notes 4/10 pain over the right side of her neck, but states that this improves with her pain medications. She has no complaints today, and is eager to be discharged home. Review of Systems Constitutional: no fever and no chills Respiratory: no cough and no dyspnea Cardiovascular: no chest pain, no lightheadedness and no calf pain Gastrointestinal: no abdominal pain, no nausea and no vomiting Physical Exam Constitutional: WD/WN, vitals as above cooperative and comfortable Neck: dressing in place over right side of neck. Dressing is clean, dry and intact Respiratory: normal respiratory effort, lungs clear to auscultation Cardiovascular: RRR, no murmur, no edema Gastrointestinal (Abdomen): Percussion/Palpation: abdomen soft; abdomen nontender and abdomen not rigid Neurologic: moves all extremities; no focal motor deficits Psychiatric: A+Ox3, euthymic affect Results & Data Vital Signs (Past 12 Hours) Vital Signs Temp Pulse Resp BP Pulse Ox 04/28/19 04:00 36.6 C 04/28/19 00:01 67 20 139/68 91 04/28/19 00:00 36.5 C 04/27/19 23:01 59 L 16 138/66 04/27/19 22:01 76 22 134/63 92 04/27/19 22:00 71 20 92 04/27/19 21:01 87 13 149/79 H 91 04/27/19 21:00 70 19 94 04/27/19 20:01 63 14 152/60 H 93 04/27/19 20:00 61 16 93 04/27/19 19:01 72 24 146/61 H 94 04/27/19 19:00 78 19 92 Resident Activity Tracking Resident Involvement: Resident Care Provided Care Provided: Adult [facility] Medicine
[2019-04-28] MEDS ORDERED: LEVOTHYROXINE SODIUM 125 MCG TABLET PO SCH (06:30)
--- NOTE | 2019-04-28 08:32 | Pharmacy Report ---
Pharmacy Glycemic Short Note 2 - Date of Service April 28, 2019 - Glycemic Short BSG Results (Last 24 hours): 04/27/19 04/27/19 04/27/19 10:31 16:34 20:45 Glucose POC Glucose 173 H 219 H 185 H 04/28/19 04/28/19 04/28/19 01:26 04:09 06:34 Glucose 131 H POC Glucose 201 H 135 H OUTPATIENT ANTIDIABETIC REGIMEN: * diet controlled, no medications * A1c = 7.1 % 03/2019 ASSESSMENT: * Diet controlled, type 2 diabetic admitted for R CEA * Patient was given 8mg IV dexamethasone in the OR yesterday, likely leading to post-op hyperglycemia * Effects of dexamethasone should dissipate over the course of the day today * Lantus 32 units x 1 given w/ dinner meal yesterday (stress level 2 + weight used for dose calc); along with Novolog CF 25 and CR 8 (again, stress level 2 + weight based doses) * Fasting BSG down to 130's this AM; will continue Lantus but at stress level 1 dosing today * Will increase the Novolog doses only slightly this AM as it appears that doses used yesterday were insufficient * Pt will likely be discharged today PLAN FOR INPATIENT GLYCEMIC CONTROL: * Basal insulin (dose decrease) * Lantus 10 units SQ BID * Bolus insulin (small dose increase) * NovoLog per scale ACHS or Q6hrs while NPO * Goal Range: Low 110 mg/dL - High 140 mg/dL * Correction Factor: 20 mg/dL/unit * Nutritional / Prandial insulin per carb ratio of 1 unit per 7 grams CHO consumed PLAN FOR DISCHARGE: * diet controlled prior to admission, given age, comorbidities and recent A1c - would not recommend initiating medication on discharge
[2019-04-28] MEDS: METOPROLOL TARTRATE 50 MG TAB PO SCH (08:47)
[2019-04-28] MEDS: INSULIN ASPART 100 UNITS/ML 3 ML PEN SC SCH (08:52)
--- NOTE | 2019-04-28 08:54 | Surgery Progress Note ---
Date of Service April 28, 2019 Assessment & Plan (1) Carotid stenosis: POD ! right car endarterectomy with bovine patch d/c after breakfast ret office 1 week no driving or lifting anything greater than 10 lbs for one week continue aspirin Present on Admission?: Yes Subjective feels fine no problems Review of Systems Review of Systems: ate last evening no nausea passing urine fine Physical Exam Physical Exam: alert coherent in no distress sitting up in chair neck incision no hematoma or scchymosis minam drainage from suzette drain(removed) neuro intact tongue midline Results & Data Vital Signs (Past 12 Hours) Vital Signs Temp Pulse Resp BP Pulse Ox 04/28/19 07:01 56 L 12 140/70 94 04/28/19 06:01 59 L 17 123/48 L 93 04/28/19 05:01 66 20 119/62 89 L 04/28/19 04:01 64 14 110/53 L 92 04/28/19 04:00 36.6 C 04/28/19 03:01 62 16 116/65 92 04/28/19 02:01 70 20 106/58 L 92 04/28/19 01:01 62 14 118/56 L 93 04/28/19 00:01 67 20 139/68 91 04/28/19 00:00 36.5 C 04/27/19 23:01 59 L 16 138/66 04/27/19 22:01 76 22 134/63 92 04/27/19 22:00 71 20 92 04/27/19 21:01 87 13 149/79 H 91 04/27/19 21:00 70 19 94
[2019-04-28] MEDS ORDERED: INSULIN GLARGINE SOLOSTAR 100 UNITS/ML 3 ML PEN SC SCH (09:00)
[2019-04-28] MEDS ORDERED: AMLODIPINE BESYLATE 5 MG TAB PO SCH (09:00)
[2019-04-28] MEDS ORDERED: PANTOprazole 40 MG TAB PO SCH (09:00)
[2019-04-28] MEDS ORDERED: LOVASTATIN 20 MG TAB PO SCH (09:00)
[2019-04-28] MEDS ORDERED: LOSARTAN POTASSIUM 50 MG TAB PO SCH (09:00)
[2019-04-28] MEDS ORDERED: ASPIRIN 81 MG ECTAB PO SCH (09:00)
[2019-04-28] MEDS ORDERED: FUROSEMIDE 20 MG TAB PO SCH (09:00)
--- NOTE | 2019-04-30 09:09 | Discharge Summary ---
Date of Service April 30, 2019 Principal Diagnosis Right carotid stenosis Discharge Exam Neck Incision clean, dry Neurologic PERRL, EOMI, accommodation nl, no face palsy, no dysarthria Discharge Data Allergies Allergy/AdvReac Type Severity Reaction Status Date / Time No Known Allergies Allergy Unknown NONE Verified 04/27/19 05:31 Consultations 04/27/19 10:16 Consult Medical Coding Specialist Routine Procedures Performed Operation Date: 04/27/19 07:00 Actual Procedures p Right Carotid Endarterectomy with Angioplasty(Right) - Chepe Ascencio MD Hospital Course (1) Carotid stenosis: 78 y/o female with right carotid stenosis was taken to the OR for endarterectomy with bovine patch angioplasty. She was transferred to ICU routinely for postoperative monitoring. Her blood pressure remained stable overnight. Beniot drain was removed in the morning. She did not have any neurological deficits. She was stable for discharge later in the morning. Total Time Total Time Spent Total Time Spent (In Minutes): 15 Discharge Plan Discharge Items Patient Disposition: Home - Self-Care Reason For Visit: Carotid Stenosis Discharge Diagnosis: carotid endarterectomy Discharge Goals: Improve disease control Activity: Per 'Additional Instructions' section Lifting: No more than 10 pounds Lifting Comment: right hand Bathing: No limitations Driving/Machine Use Comment: no driving for 1 week Non-emergency contact: Surgeon Call non-emergency contact if: you have any medication questions, your pain is not controlled, you have a fever, your temperature is above 101.5 and your wound has increased redness Follow-up/Referrals: Steve Aguirre MD [Primary Care Provider] - Chepe Acsencio MD [Surgeon] - (In 1 week, call if you do not already have an appt or have any questions) Diet: Regular Addtl Provider Instructions: Remove bandage to shower, you can cover drain wound with a band aid Prescriptions: Continued levothyroxine 125 mcg tablet 125 mcg PO DAILY Qty: 90 RF: 3 atorvastatin 40 mg Tablet 40 mg PO PM RF: 0 aspirin 81 mg Tablet,Delayed Release (Dr/Ec) 81 mg PO QAM RF: 0 amlodipine 10 mg Tablet 10 mg PO QAM RF: 0 metoprolol tartrate 50 mg Tablet 75 mg PO BID RF: 0 furosemide 20 mg Tablet 20 mg PO QAM RF: 0 ergocalciferol (vitamin D2) [Vitamin D2] 50,000 unit Capsule 50,000 unit PO MONTHLY RF: 0 Multivitamin 50 Plus Tablet 1 tab PO QAM RF: 0 psyllium husk [Metamucil] 0.52 gram Capsule 0.52 g PO QAM RF: 0 omeprazole 20 mg Tablet,Delayed Release (Dr/Ec) 20 mg PO QAM RF: 0 losartan 100 mg tablet 100 mg PO DAILY RF: 0 Stand-Alone Forms: [facility] Discharge Orders: Discharge Order (Routine); Ordered 04/28/19 Ordered By: Sai Melchor Jr Admission Data Admit Date/Time: 04/27/19 10:18 Attending Provider: Chepe Ascencio Admit Provider: Chepe Ascencio Primary Care Provider: Steve Aguirre Other Providers: Ian Lobo Service: Intensive Care Unit Other Interventions: Discharge Summary Assessment (RN) Last Done: 04/28/19 09:47 DC Date/Time DO NOT enter until pt leaves facility: 04/28/19 10:35
== END 2019-04-28 10:35 | disposition home or self-care (01) | DRG 38 ==
LOC: ASU 04:57 → 1E 10:18